=== PATIENT | female | born 1950 | race African-American/Black ===

== ENCOUNTER 2023-12-21 18:41 | Emergency (ER) | payer MEDICARE ==
[~2023-12-21] VITALS: Ht 175.3 cm; Wt 82.0 kg
[2023-12-21 18:49] VITALS: BP 156/103; PULSE 62; RESP 18; TEMP 98.6; O2SAT 100
[2023-12-21 19:41] LABS: BASOPHILS % 0.5 % (0.0-2.0); EOSINOPHILS % 0.7 % (0.0-5.0); HEMATOCRIT. 36.4 % (36.0-48.0); HEMOGLOBIN. 11.8 g/dL (12.0-16.0); LYMPHOCYTES % 47.2 % (20.0-50.0); MEAN CORPUSCULAR HEMOGLOBIN 28.2 pg (28.0-32.0); MEAN CORPUSCULAR HGB CONC 32.5 g/dL (31.0-37.0); MEAN CORPUSCULAR VOLUME 86.8 fL (81.0-99.0); MEAN PLATELET VOLUME 9.1 fl (7.4-10.4); MONOCYTES % 6.9 % (2.0-8.0); NEUTROPHILS % 44.7 % (40.0-76.0); PLATELET 234 x1000/uL (130-400); RED BLOOD CELL COUNT 4.19 mill/uL (4.2-5.4); RED CELL DISTRIBUTION WIDTH 13.8 % (11.6-14.6); WHITE BLOOD COUNT 5.2 x1000/uL (4.5-11.0)
[2023-12-21 19:49] LABS: CARBON DIOXIDE 29 mEq/L (21-32); CHLORIDE 108 mEq/L (98-107); SODIUM 141 mEq/L (136-145)
[2023-12-21 19:50] LABS: CALCIUM 10.1 mg/dL (8.7-10.4)
[2023-12-21 19:55] LABS: CREATININE 0.9 mg/dL (0.6-1.0); GLUCOSE 111 mg/dL (70-105); TROPONIN I HIGH SENSITIVITY 28 ng/L (3.0-34); UREA NITROGEN BLOOD 10 mg/dL (9-23)
[2023-12-21 19:57] LABS: ALANINE AMINOTRANSFERASE 26 IU/L (10-49); ALBUMIN 4.7 g/dL (3.2-4.8); ASPARTATE AMINOTRANSFERASE 33 IU/L (<34); BILIRUBIN DIRECT 0.3 mg/dL (<=3.0); PROTEIN TOTAL 7.7 g/dL (6.0-8.3)
[2023-12-21 21:27] LABS: CLARITY URINE CLEAR (CLEAR); COLOR URINE YELLOW (YELLOW); GLUCOSE URINE NEGATIVE (NEGATIVE); KETONES URINE NEGATIVE (NEGATIVE); LEUKOCYTE ESTERASE URINE NEGATIVE (NEGATIVE); NITRITE URINE NEGATIVE (NEGATIVE); OCCULT BLOOD URINE NEGATIVE (NEGATIVE); PH URINE 5.5 (4.5-8.0); PROTEIN URINE NEGATIVE (NEGATIVE); UROBILINOGEN URINE 0.2 E.U./dL (0.2-1.0)
[2023-12-21] MEDS ORDERED: PANTOPRAZOLE 40MG DR TABLET PO ONE (21:30)
[2023-12-21] MEDS ORDERED: MAGNESIUM/ALUMINUM HYDROXIDE/SIMETHICONE 30ML UDC PO ONE (21:30)
[2023-12-21 21:31] LABS: TROPONIN I HIGH SENSITIVITY 29 ng/L (3.0-34)
[2023-12-21] MEDS ORDERED: MAG-55 MT (23:09)
[2023-12-22] MEDS: MAGNESIUM/ALUMINUM HYDROXIDE/SIMETHICONE 30ML UDC PO NR (00:49)
[2023-12-22] MEDS: PANTOPRAZOLE 40MG DR TABLET PO NR (00:50)
== END 2023-12-22 01:10 | disposition home or self-care (01) ==
LOC: ER 19:03
DX: K21.9 Gastro-esophageal reflux disease without esophagitis (principal); R07.89 Other chest pain; E11.9 Type 2 diabetes mellitus without complications; I10 Essential (primary) hypertension; Z88.0 Allergy status to penicillin
CPT/HCPCS: 36415; 71045; 80048; 80076; 81003; 83880; 84484; 85025; 93005; 99285